=== PATIENT | female | born 1940 | race Asian ===

== ENCOUNTER 2016-06-07 07:27 | Day surgery (SDC) | payer MEDICARE ==
--- NOTE | 2016-06-02 10:00 | HP ---
DATE OF CLINIC: 05/18/2016 RENEE VARGAS : 1940 PLANNED PROCEDURE: Left Fourth Digit Trigger Finger Release DATE OF PROCEDURE: June 07, 2016 SURGEON: Neto Brantley M.D. PCP: Dr. Amanda Escobar HISTORY OF PRESENT ILLNESS Renee Vargas is a 75 year old female. * Medication list reviewed with patient allergy list reviewed with patient. * Has not tried NSAIDS * Has not tried Physical Therapy * Has not tried Injections Mrs. Vargas is in today pre-operatively for her upcoming left 4th trigger finger release with Dr. Brantley on 06/07/16. Patient presents in good spirits and is ready to proceed. Patient notes her chronic back pain has flaired recently. She otherwise denies recent illness, change in baseline health, or prior surgical complications. Her recent consult with Dr. Brantley follows: Patient is a 75-year-old female here for a 5 month history of atraumatic "triggering" of her left 4th digit. She needs to manually release this and feels that it is becoming more troublesome. There is some associated pain at the base of the digit as well as at the PIP joint. No distal numbness or tingling. Of note, in the remote past she had right 2nd and 3rd trigger releases that I did while still in [place], from which she has done well. She is interested in definitive management. Comorbidities include non-insulin dependent diabetes. She is a non-smoker. CURRENT MEDICATION * *Supplement Miscellaneous (not specified) 1 once a day glucosamin/chondrotin, calcium with vitamin d, multi vitamin, vitamin B12, 0 days, 0 refills * Arimidex 1 MG Tablet 1 once a day 0 days, 0 refills * Chlorpheniramine Maleate 4 MG Tablet as needed 0 days, 0 refills * MetFORMIN HCl 500 MG Tablet 1 once a day 90 days, 0 refills * Metrogel 1 % Gel (jelly) as directed 0 days, 0 refills * Oxybutynin Chloride ER 10 MG Tablet, extended-release 24 hour TB24, as directed 30 days, 0 refills * Travatan Z 0.004 % Solution as directed 30 days, 0 refills PAST MEDICAL/SURGICAL HISTORY Reported: Medical: A previous fracture nasal fracture 09/08/14, cancer breast, Diabetes Mellitus pre-diabetic, and history of Arthritis. Surgical / Procedural: Prior surgery Right long and pointer finger trigger release by Dr. Brantley in [place], patient states she has had multiple surgeries many years ago but patient didn't want to give more details on those surgeries, Appendectomy, Cholecystectomy, and Breast surgery Left mastectomy. SOCIAL HISTORY Behavioral: Caffeine use and non-smoker never smoked. Smoking status: Never smoker. Alcohol: Alcohol 1 glass 2-3 times a week and alcohol use. Work: Occupation Retired MD. ALLERGIES * Penicillin REVIEW OF SYSTEMS Systemic: No fever and no recent weight change. Head: No head symptoms. Cardiovascular: No cardiovascular symptoms. Pulmonary: No pulmonary symptoms. Gastrointestinal: No gastrointestinal symptoms. Psychological: No psychological symptoms. Skin: No skin lesions and no rash. PHYSICAL FINDINGS * Vitals taken 05/18/2016 11:24 am BP-Sitting R 117/62 mmHg 100 - 120/56 - 80 BP Cuff Size Regular Pulse Rate-Sitting 71 bpm 50 - 100 Temp-Oral 98.1 F 96 - 101 Height 56.5 in 59 - 68 Weight 109 lbs 95 - 175 Body Mass Index 24.0 kg/m2 Body Surface Area 1.38 m2 Pain Level 4 Ears, Nose, Throat: * ENT: normal. Lungs: * Clear to auscultation. Cardiovascular: Heart Rate and Rhythm: * Normal. Abdomen: * Normal. Neurological: Motor: * Dominant Hand = Right Hand. Patient is a well-developed, well-nourished female in no acute distress, normal-appearing mood and affect. Evaluation of the hand and wrist show a tender nodule at the base of the 4th digit proximal to the MCP flexion crease. She does have demonstrable active triggering requiring manual release. NT at the PIP joint, although there is mild circumferential swelling. DIP joint shows full active and passive motion. Distal light touch sensation is intact. Capillary refill is brisk. Exam of the remainder hand of the wrist shows she has a positive 1st metacarpal grind test with mild prominence. She has full opposition and abduction and extension of the thumb. Wrist motion is non-irritable. Phalen's is negative, Tinel's is negative at the wrist. Contralateral hand shows well-healed longitudinal incisions over the 2nd and 3rd ray consistent with her prior trigger finger releases with full non-irritable motion. TESTS Radiographs, 3 views of the 4th digit are reviewed. Joint space is well preserved. There is evidence of fairly advanced 1st CMC degenerative changes with sclerosis, joint space loss and periarticular spurring. ASSESSMENT * Trigger finger of the left ring finger Left 4th trigger finger. 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 THERAPY * Patient fall risk screen negative. * Patient eligible for fall risk assessment. * Patient received fall risk assessment. PLAN * OTHER Cyclobenzaprine HCl 10 MG TABS, 1 po q 8 hours prn, 10 days, 0 refills Left fourth digit trigger finger release. Discussed with patient in detail the limitations, expectations as well as risks and possible complications of surgery including, but not limited to wound problems or infection, neurovascular injury, continued pain or dysfunction including the possibility of additional operative or non-operative treatment. Patient also realizes the perioperative risks including risks associated with anesthesia and would like to proceed. A full PAR conference was held, questions and concerns addressed and informed consent was obtained. Patient will be sent from my office for completion of the preoperative workup. CARE TEAM Amanda Escobar MD Internal Medicine Joshua Gonzalez MD Hematology & Oncology Alexis Magaña MD Ophthalmology CC: Amanda Escobar MD Internal Medicine RS/sg
[2016-06-07] MEDS ORDERED: CLINDAMYCIN 900 MG PREMIX 100 ML IV PRN (07:30)
[2016-06-07] MEDS ORDERED: CLINDAMYCIN 900 MG PREMIX 50 ML IV ONE (07:41)
[2016-06-07] MEDS ORDERED: IV START KIT ONE (07:42)
[2016-06-07] MEDS ORDERED: SODIUM CHLORIDE 0.9% 1,000 ML ONE (07:43)
[2016-06-07] MEDS ORDERED: LIDOCAINE 2% (PRES FREE) 5 ML VIAL ONE (08:25)
[2016-06-07] MEDS ORDERED: FENTANYL 100 MCG/2 ML VIAL ONE (08:25)
[2016-06-07] MEDS ORDERED: PROPOFOL 20 ML IV ONE (08:25)
[2016-06-07] MEDS ORDERED: MIDAZOLAM HCL 1 MG/ML 2ML VIAL ONE (08:26)
[2016-06-07] MEDS ORDERED: LIDOCAINE 2% ONE (09:56)
[2016-06-07] MEDS ORDERED: FLUMAZENIL 0.1 MG/1 ML 5ML VIAL IV ONE (10:33)
--- NOTE | 2016-06-07 10:56 | PCMBPN ---
Brief Post Op Note: Date of Procedure: 06/07/16 Preoperative Diagnosis: LD4 trigger finger Postoperative Diagnosis: 1. [Same] Procedure: LD4 trigger finger release Surgeon: Neto Brantley MD Anesthesia: local/MAC ([facility]bel) Condition: stable to PAR Complications: none IV Fluids: per anesthesia Urine Output: no glynn Estimated Blood Loss: minimal Tourniquet Time: 13 minutes Specimens: none Implants: none Drains: none
[2016-06-07] MEDS ORDERED: KETOROLAC TROMETHAMINE 30 MG/ML 1 ML VIAL IV PRN (11:02)
[2016-06-07] MEDS ORDERED: SODIUM CHLORIDE 0.9% 1,000 ML IV SCH (11:02)
[2016-06-07] MEDS ORDERED: ONDANSETRON 4 MG/2ML 2 ML VIAL IV PRN (11:02)
[2016-06-07] MEDS ORDERED: ACETAMINOPHEN 325 MG TABLET PO PRN (11:02)
[2016-06-07] MEDS ORDERED: HYDROCODONE/ACETAMINOPHEN 5/325MG TABLET PO PRN (11:02)
[2016-06-07] MEDS ORDERED: HYDROCODONE/ACETAMINOPHEN 5/325MG TABLET ONE (12:54)
--- NOTE | 2016-06-08 10:12 | OP ---
RENEE ASHFORD [id number] : 1940 DATE OF SURGERY: June 07, 2016 PREOPERATIVE DIAGNOSIS: Left 4th trigger finger POSTOPERATIVE DIAGNOSIS: Left 4th trigger finger PROCEDURE: Left 4th trigger finger release SURGEON: Neto Brantley M.D. ESTIMATED BLOOD LOSS: Minimal ANESTHESIA: Local/MAC per Rebel TOURNIQUET TIME: 13 minutes FLUIDS: IV fluid placed per anesthesia. DRAINS: None COMPLICATIONS: None INDICATIONS: Patient is a 75-year-old female with atraumatic triggering of the left 4th digit. This is chronic and unresponsive to traditional nonoperative measures. She desires elective trigger finger release. For additional details please refer to dictated preoperative H&P. PAR conference was held, questions and concerns addressed and informed consent obtained. PROCEDURAL DESCRIPTION: Patient was taken to the OR. Tourniquet was applied to the proximal arm and the upper extremity prepped and draped out in the usual sterile fashion. Preoperative IV antibiotics were given empirically. The magaly incisional area was injected with 8cc of 2% plain Lidocaine. After sterile prep and drape the arm was elevated and exsanguinated with an Esmarch and the tourniquet inflated. Loop magnification was used to help facilitate dissection. A longitudinal incision was made proximal to the MCP flexion crease in line with the 4th ray. We dissected through subcutaneous tissue bluntly to the flexor tendon sheath in the area of the AI rajan. This was opened under direct visualization longitudinally. The underlying tendon was grossly normal. Once the entire thickened area of the AI rajan was released we irrigated and closed in a single layer with interrupted 4-0 nylon. The patient was then asked to reciprocally flex and extend the finger. There was no evidence of residual triggering. Satisfied, a sterile dressing was applied and the tourniquet was released. MELECIO/trinity CC: [facility] Arabella Escobar MD
== END 2016-06-07 13:13 | disposition home or self-care (01) ==
LOC: SDC 07:27
PROVIDERS: ATTEND Orthopaedic Surgery
PROC: 0LN80ZZ Release Left Hand Tendon, Open Approach (ICD-10-PCS; principal; 2016-06-07)
DX: M65.342 Trigger finger, left ring finger (principal); M13.842 Other specified arthritis, left hand; G89.29 Other chronic pain; M54.9 Dorsalgia, unspecified; E11.9 Type 2 diabetes mellitus without complications; Z88.0 Allergy status to penicillin